=== PATIENT | female | born 1995 | race Caucasian/White ===

== ENCOUNTER 2017-01-20 18:29 | Emergency (ER) | payer OTHER ==
[~2017-01-20] VITALS: Ht 170.2 cm; Wt 58.9 kg
[~2017-01-20 18:29] MED LIST: HYDR1TAB12 PO; MONT10TA6 PO
[2017-01-20 18:30] VITALS: BP 119/72
[2017-01-20] MEDS ORDERED: LIDOCAINE 1%, 10ML INFIL ONE (19:00)
[2017-01-20] MEDS ORDERED: DIPH,PERTUSS(ACELL),TET VAC/PF 0.5 ML IM-VACC ONE ×3 (19:00→19:13)
== END 2017-01-20 19:39 | disposition home or self-care (01) ==
LOC: ED 19:38
DX: L02.416 Cutaneous abscess of left lower limb (principal)
CPT/HCPCS: 99283